=== PATIENT | male | born 1985 | race African-American/Black ===

== ENCOUNTER 2016-08-21 21:44 | Emergency (ER) | payer SELFPAY ==
[~2016-08-21] VITALS: Ht 172.7 cm; Wt 68.0 kg
[2016-08-21] MEDS ORDERED: MORPHINE SULFATE 4 MG/ML CPJ (NOT FOR IM USE) IV ONE (22:00)
[2016-08-21] MEDS ORDERED: TETANUS, DIPHTHERIA, PERTUSSIS VAC/PF 0.5ML (>7YR OLD) IM ONE (22:00)
[2016-08-21] MEDS ORDERED: CEFAZOLIN 1000MG PREMIX 50 ML IV ONE (22:00)
[2016-08-21 22:24] LABS: BASOPHILS % 0.7 % (0.0-2.0); EOSINOPHILS % 0.9 % (0.0-5.0); HEMATOCRIT. 44.9 % (42.0-52.0); LYMPHOCYTES % 33.9 % (20.0-50.0); MEAN CORPUSCULAR HEMOGLOBIN 31.7 pg (28.0-32.0); MEAN CORPUSCULAR HGB CONC 33.4 g/dL (31.0-37.0); MEAN CORPUSCULAR VOLUME 94.9 fL (80.0-94.0); MEAN PLATELET VOLUME 8.6 fl (7.4-10.4); MONOCYTES % 5.3 % (2.0-8.0); NEUTROPHILS % 59.2 % (40.0-76.0); PLATELET 246 x1000/uL (130-400); RED BLOOD CELL COUNT 4.73 mill/uL (4.7-6.1); RED CELL DISTRIBUTION WIDTH 13.8 % (11.6-14.6); WHITE BLOOD COUNT 9.3 x1000/uL (4.5-11.0)
[2016-08-21 22:30] LABS: ANION GAP 14; CALCIUM 8.8 mg/dL (8.5-10.1); CARBON DIOXIDE 25 mEq/L (21-32); CHLORIDE 111 mEq/L (98-107); INDEX HEMOLYSI 2 (1-3); INDEX ICTERIC 1 (1-4); INDEX LIPEMIC 1 (1-3); UREA NITROGEN BLOOD 10 mg/dL (7-21); eGFR > 60 mL/min (>60)
[2016-08-21] MEDS ORDERED: BACITRACIN ZINC OINT UDPKT TOP ONE (23:15)
[2016-08-21] MEDS ORDERED: FENTANYL CITRATE/PF 50MCG/ML 2ML VIAL IV ONE (23:30)
[2016-08-21] MEDS ORDERED: BACITRACIN ZINC 15GM TUBE TOP ONE (23:45)
[2016-08-22 00:05] VITALS: BP 176/94
== END 2016-08-22 00:49 | disposition short-term general hospital (02) ==
LOC: ER 21:44
DX: S52.91XA Unspecified fracture of right forearm, initial encounter for closed fracture (principal); W34.00XA Accidental discharge from unspecified firearms or gun, initial encounter; Y93.89 Activity, other specified; Y99.8 Other external cause status; Y92.89 Other specified places as the place of occurrence of the external cause; Z98.890 Other specified postprocedural states
CPT/HCPCS: 36415; 73060; 73090; 80048; 85025; 86850; 86900; 86901; 90471; 90715; 96365; 96375; 99291; J0690; J2270; J3010; Z7610; 99285

== ENCOUNTER 2018-11-01 13:53 | Emergency (ER) | payer MEDICAID ==
[~2018-11-01] VITALS: Ht 170.2 cm; Wt 68.0 kg
[2018-11-01 16:50] VITALS: BP 137/81
[2018-11-01 16:50] LABS: CHLORIDE 104 mEq/L (98-107)
[2018-11-01 16:51] LABS: INR 1.1; PROTHROMBIN TIME 11.1 sec (9.6-11.0)
[2018-11-01 16:58] LABS: BASOPHILS % 0.7 % (0.0-2.0); EOSINOPHILS % 0.3 % (0.0-5.0); HEMATOCRIT. 44.3 % (42.0-52.0); HEMOGLOBIN. 14.9 g/dL (14.0-18.0); LYMPHOCYTES % 16.2 % (20.0-50.0); MEAN CORPUSCULAR HEMOGLOBIN 31.9 pg (28.0-32.0); MEAN PLATELET VOLUME 8.5 fl (7.4-10.4); MONOCYTES % 5.9 % (2.0-8.0); NEUTROPHILS % 76.9 % (40.0-76.0); PLATELET 234 x1000/uL (130-400); RED BLOOD CELL COUNT 4.66 mill/uL (4.7-6.1); RED CELL DISTRIBUTION WIDTH 14.1 % (11.6-14.6)
== END 2018-11-01 19:59 | disposition short-term general hospital (02) ==
LOC: ER 14:16
DX: S02.82XA Fracture of other specified skull and facial bones, left side, initial encounter for closed fracture (principal); S02.2XXA Fracture of nasal bones, initial encounter for closed fracture; F12.10 Cannabis abuse, uncomplicated; X58.XXXA Exposure to other specified factors, initial encounter; Y93.89 Activity, other specified; Y92.89 Other specified places as the place of occurrence of the external cause; Y99.8 Other external cause status
CPT/HCPCS: 36415; 70486; 86850; 86900; 99285

== ENCOUNTER 2021-02-17 11:50 | Emergency (ER) | payer MEDICAID ==
[~2021-02-17] VITALS: Ht 170.2 cm; Wt 73.0 kg
[2021-02-17] MEDS ORDERED: IBUPROFEN 400MG TABLET PO ONE (13:15)
[2021-02-17] MEDS ORDERED: ACETAMINOPHEN 325MG TABLET PO ONE (13:15)
[2021-02-17 13:25] VITALS: BP 132/86
== END 2021-02-17 16:59 | disposition home or self-care (01) ==
LOC: ER 11:50
DX: L63.9 Alopecia areata, unspecified (principal); F17.290 Nicotine dependence, other tobacco product, uncomplicated; F12.10 Cannabis abuse, uncomplicated
CPT/HCPCS: 99283

== ENCOUNTER 2021-04-12 09:26 | Inpatient (IN) | payer MEDICAID ==
[~2021-04-12] VITALS: Ht 170.2 cm; Wt 64.4 kg
[2021-04-12 10:29] LABS: BASOPHILS % 0.6 % (0.0-2.0); EOSINOPHILS % 1.1 % (0.0-5.0); HEMATOCRIT. 43.6 % (42.0-52.0); HEMOGLOBIN. 14.6 g/dL (14.0-18.0); LYMPHOCYTES % 16.4 % (20.0-50.0); MEAN CORPUSCULAR VOLUME 92.9 fL (80.0-94.0); MEAN PLATELET VOLUME 8.6 fl (7.4-10.4); MONOCYTES % 4.6 % (2.0-8.0); NEUTROPHILS % 77.3 % (40.0-76.0); PLATELET 248 x1000/uL (130-400); RED CELL DISTRIBUTION WIDTH 13.7 % (11.6-14.6)
[2021-04-12 10:36] LABS: CHLORIDE 108 mEq/L (98-107)
[2021-04-12 10:40] LABS: ETHANOL BLOOD < 10 mg/dL
[2021-04-12 12:08] LABS: *BARBITURATES SCREEN URINE NEGATIVE (NEGATIVE); *BENZODIAZEPINES SCREEN URINE NEGATIVE (NEGATIVE); *COCAINE SCREEN URINE NEGATIVE (NEGATIVE); CANNABINOID URINE SCREEN PRESUMTIVE POSITIVE (NEGATIVE); METHADONE URINE SCREEN NEGATIVE (NEGATIVE); OPIATES URINE SCREEN NEGATIVE (NEGATIVE); PHENCYCLIDINE URINE SCREEN NEGATIVE (NEGATIVE)
[2021-04-12 12:10] LABS: *AMPHETAMINES SCREEN URINE NEGATIVE (NEGATIVE)
[2021-04-12] MEDS ORDERED: ASPIRIN 325MG EC TABLET PO ONE (13:45)
[2021-04-12] MEDS ORDERED: IOHEXOL-350 100 ML BOTTLE ONE (14:15)
[2021-04-12] MEDS ORDERED: MORPHINE SULFATE 2 MG/ML CPJ (NOT FOR IM USE) IV PRN (20:45)
[2021-04-12] MEDS ORDERED: ACETAMINOPHEN 325MG TABLET PO PRN (20:45)
[2021-04-12] MEDS ORDERED: HYDRALAZINE 20MG/ML VIAL IV PRN (20:45)
[2021-04-12] MEDS ORDERED: MAGNESIUM/ALUMINUM HYDROXIDE/SIMETHICONE 30ML UDC PO PRN (20:45)
[2021-04-12] MEDS ORDERED: DIPHENHYDRAMINE 50MG/ML VIAL IV PRN (20:45)
[2021-04-12] MEDS ORDERED: LORAZEPAM 2MG/ML CPJ IV PRN (20:45)
[2021-04-12] MEDS ORDERED: IPRATROPIUM/ALBUTEROL 0.5-3(2.5)MG/3ML NEB HHN PRN (20:45)
[2021-04-12] MEDS ORDERED: ONDANSETRON HCL 4MG/2ML INJ IV PRN (20:45)
[2021-04-12] MEDS ORDERED: CLONIDINE 0.1MG TABLET PO PRN (20:45)
[2021-04-12] MEDS ORDERED: HYDROCODONE/ACETAMINOPHEN 5/325MG TABLET PO PRN (20:45)
[2021-04-12] MEDS ORDERED: GUAIFENESIN 200MG/10ML SUGAR FREE UDC PO PRN (20:45)
[2021-04-12] MEDS ORDERED: DOCUSATE SODIUM 100MG CAPSULE PO PRN (20:45)
[2021-04-12] MEDS ORDERED: NALOXONE HCL 0.4MG/ML VIAL IV PRN (21:00)
[2021-04-12 21:30] VITALS: BP 127/81
[2021-04-12 22:00] VITALS: BP 156/71
[2021-04-12] MEDS: ENOXAPARIN 40MG/0.4ML SYR SUBCUT SCH (22:27)
[2021-04-12] MEDS: SODIUM CHLORIDE 0.9% INJ 3ML FLUSH IVF SCH (22:27)
[2021-04-13] VITALS: BP 123/49
[2021-04-13 01:19] LABS: CREATINE KINASE 87 IU/L (39-308)
[2021-04-13 01:20] LABS: CREATINE KINASE MB FRACTION < 1.0 ng/mL (0.5-3.6)
[2021-04-13 04:00] VITALS: BP 105/80
[2021-04-13] MEDS: SODIUM CHLORIDE 0.9% INJ 3ML FLUSH IVF SCH ×3 (05:46→21:22)
[2021-04-13 06:33] LABS: BASOPHILS % 0.6 % (0.0-2.0); EOSINOPHILS % 1.8 % (0.0-5.0); HEMATOCRIT. 41.5 % (42.0-52.0); HEMOGLOBIN. 14.1 g/dL (14.0-18.0); MEAN CORPUSCULAR HEMOGLOBIN 31.4 pg (28.0-32.0); MEAN CORPUSCULAR VOLUME 92.4 fL (80.0-94.0); MEAN PLATELET VOLUME 8.8 fl (7.4-10.4); MONOCYTES % 6.9 % (2.0-8.0); NEUTROPHILS % 69.7 % (40.0-76.0); PLATELET 239 x1000/uL (130-400); RED BLOOD CELL COUNT 4.49 mill/uL (4.7-6.1); RED CELL DISTRIBUTION WIDTH 13.5 % (11.6-14.6)
[2021-04-13 06:41] LABS: CHLORIDE 107 mEq/L (98-107)
[2021-04-13 06:50] LABS: CREATINE KINASE 76 IU/L (39-308)
[2021-04-13 06:53] LABS: CREATINE KINASE MB FRACTION < 1.0 ng/mL (0.5-3.6)
[2021-04-13 08:00] VITALS: BP 103/54
[2021-04-13] MEDS: ASPIRIN 81MG EC TABLET PO SCH (11:40)
[2021-04-13 12:00] VITALS: BP 117/75
[2021-04-13 16:00] VITALS: BP 116/80
[2021-04-13 20:00] VITALS: BP 120/78
[2021-04-13] MEDS: ATORVASTATIN CALCIUM 40MG TABLET PO SCH (21:21)
[2021-04-13] MEDS: ENOXAPARIN 40MG/0.4ML SYR SUBCUT SCH (21:22)
[2021-04-14] VITALS: BP 115/69
[2021-04-14 04:00] VITALS: BP 121/70
[2021-04-14] MEDS: SODIUM CHLORIDE 0.9% INJ 3ML FLUSH IVF SCH ×3 (04:41→21:10)
[2021-04-14 08:00] VITALS: BP 109/68
[2021-04-14] MEDS: ASPIRIN 81MG EC TABLET PO SCH (09:45)
[2021-04-14 12:00] VITALS: BP 112/69
[2021-04-14 16:00] VITALS: BP 115/74
[2021-04-14 20:00] VITALS: BP 123/77
[2021-04-14] MEDS: ENOXAPARIN 40MG/0.4ML SYR SUBCUT SCH (21:10)
[2021-04-14] MEDS: ATORVASTATIN CALCIUM 40MG TABLET PO SCH (21:10)
[2021-04-15] VITALS: BP 107/65
[2021-04-15 04:00] VITALS: BP 126/74
[2021-04-15] MEDS: SODIUM CHLORIDE 0.9% INJ 3ML FLUSH IVF SCH ×2 (05:45→14:00)
[2021-04-15 08:00] VITALS: BP 111/63
[2021-04-15] MEDS: ASPIRIN 81MG EC TABLET PO SCH (08:34)
[2021-04-15] MEDS ORDERED: LIDOCAINE HCL 2% JELLY 5ML ONE (09:02)
[2021-04-15] MEDS ORDERED: TETRACAINE/BENZOCAINE/BUTAMBEN 20 GM SPRAY MM ONE (09:03)
[2021-04-15] MEDS ORDERED: MIDAZOLAM HCL 2 MG/2 ML VIAL ONE ×2 (09:04→09:31)
[2021-04-15] MEDS ORDERED: FENTANYL CITRATE/PF 50MCG/ML 2ML VIAL ONE (09:04)
[2021-04-15] MEDS ORDERED: FENTANYL CITRATE/PF 50MCG/ML 5ML VIAL ONE (10:59)
[2021-04-15] MEDS ORDERED: MIDAZOLAM HCL 5 MG/5 ML VIAL ONE (10:59)
[2021-04-15 12:00] VITALS: BP 119/67
[2021-04-15 13:35] VITALS: BP 119/68
[2021-04-15 16:00] VITALS: BP 121/65
[2021-04-18 13:11] LABS: ANTI-NUCLEAR ANTIBODIES DIRECT Negative (Negative)
[2021-04-19 13:11] LABS: ANTI-CARDIOLIPIN AB IGA < 9 APL U/mL (0-11)
== END 2021-04-15 17:14 | disposition home or self-care (01) | DRG 58 ==
LOC: ER 09:37 → 7EST 15:34 → EDBEDREQ 16:02 → ENRESERV 19:20 → SUPCPDRO 20:44
PROVIDERS: ADMIT Internal Medicine; ATTEND Internal Medicine
DX: R47.81 Slurred speech (principal); E78.5 Hyperlipidemia, unspecified; F12.90 Cannabis use, unspecified, uncomplicated; L98.9 Disorder of the skin and subcutaneous tissue, unspecified; Z20.822 Contact with and (suspected) exposure to COVID-19; L98.8 Other specified disorders of the skin and subcutaneous tissue; Z82.3 Family history of stroke; Z86.73 Personal history of transient ischemic attack (TIA), and cerebral infarction without residual deficits; Z79.899 Other long term (current) drug therapy
CPT/HCPCS: 36415; 70496; 70498; 70551; 71045; 80053; 80061; 80305; 80320; 82550; 82553; 82962; 83880; 84443; 84484; 85025; 85303; 86038; 86147; 87426; 92610; 93005; 93306; 93312; 93970; 97162; 97166; 99285; J1650; J2250; J3010; Q9967; G0480

== ENCOUNTER 2021-10-05 08:55 | Emergency (ER) | payer MEDICAID ==
[~2021-10-05] VITALS: Ht 165.1 cm; Wt 70.0 kg
[2021-10-05 09:15] VITALS: BP 102/72
== END 2021-10-05 10:18 | disposition home or self-care (01) ==
LOC: ER 08:55
DX: R51.9 Headache, unspecified (principal); I69.354 Hemiplegia and hemiparesis following cerebral infarction affecting left non-dominant side; F12.90 Cannabis use, unspecified, uncomplicated
CPT/HCPCS: 99281

== ENCOUNTER 2021-11-05 08:32 | Emergency (ER) | payer MEDICAID ==
[~2021-11-05] VITALS: Ht 170.2 cm; Wt 62.0 kg
[2021-11-05 08:34] VITALS: BP 149/86
[2021-11-05] MEDS ORDERED: ACETAMINOPHEN 325MG TABLET PO STA (10:17)
[2021-11-05 11:47] LABS: BASOPHILS % 0.4 % (0.0-2.0); EOSINOPHILS % 1.2 % (0.0-5.0); HEMATOCRIT. 44.1 % (42.0-52.0); HEMOGLOBIN. 14.8 g/dL (14.0-18.0); LYMPHOCYTES % 15.4 % (20.0-50.0); MEAN CORPUSCULAR HEMOGLOBIN 30.2 pg (28.0-32.0); MEAN CORPUSCULAR VOLUME 89.9 fL (80.0-94.0); MEAN PLATELET VOLUME 8.4 fl (7.4-10.4); MONOCYTES % 4.4 % (2.0-8.0); NEUTROPHILS % 78.6 % (40.0-76.0); PLATELET 266 x1000/uL (130-400); RED CELL DISTRIBUTION WIDTH 14.6 % (11.6-14.6)
[2021-11-05 11:50] LABS: CHLORIDE 109 mEq/L (98-107)
== END 2021-11-05 12:48 | disposition home or self-care (01) ==
LOC: ER 08:41
DX: R51.9 Headache, unspecified (principal); R42 Dizziness and giddiness; I69.351 Hemiplegia and hemiparesis following cerebral infarction affecting right dominant side; I69.921 Dysphasia following unspecified cerebrovascular disease
CPT/HCPCS: 36415; 80053; 84484; 85025; 93005; 99285

== ENCOUNTER 2021-11-23 08:53 | Inpatient (IN) | payer MEDICAID ==
[~2021-11-23] VITALS: Ht 170.2 cm; Wt 64.4 kg
[2021-11-23 09:41] LABS: BASOPHILS % 0.8 % (0.0-2.0); EOSINOPHILS % 4.2 % (0.0-5.0); HEMATOCRIT. 47.7 % (42.0-52.0); HEMOGLOBIN. 16.1 g/dL (14.0-18.0); LYMPHOCYTES % 27.4 % (20.0-50.0); MEAN CORPUSCULAR HEMOGLOBIN 31.1 pg (28.0-32.0); MEAN PLATELET VOLUME 8.6 fl (7.4-10.4); NEUTROPHILS % 61.6 % (40.0-76.0); PLATELET 263 x1000/uL (130-400); RED BLOOD CELL COUNT 5.18 mill/uL (4.7-6.1); RED CELL DISTRIBUTION WIDTH 14.1 % (11.6-14.6)
[2021-11-23 09:49] LABS: CHLORIDE 106 mEq/L (98-107)
[2021-11-23] MEDS ORDERED: ASPIRIN 325MG EC TABLET PO ONE (10:30)
[2021-11-23] MEDS ORDERED: MORPHINE SULFATE 2 MG/ML CPJ (NOT FOR IM USE) IV PRN (13:45)
[2021-11-23] MEDS ORDERED: NALOXONE HCL 0.4MG/ML VIAL IV PRN (13:45)
[2021-11-23] MEDS ORDERED: MAGNESIUM/ALUMINUM HYDROXIDE/SIMETHICONE 30ML UDC PO PRN (13:45)
[2021-11-23] MEDS ORDERED: ACETAMINOPHEN 325MG TABLET PO PRN (13:45)
[2021-11-23] MEDS ORDERED: HYDROCODONE/ACETAMINOPHEN 5/325MG TABLET PO PRN (13:45)
[2021-11-23] MEDS ORDERED: ONDANSETRON HCL 4MG/2ML INJ IV PRN (13:45)
[2021-11-23] MEDS ORDERED: DOCUSATE SODIUM 100MG CAPSULE PO PRN (13:45)
[2021-11-23] MEDS ORDERED: NA PHOS,M-B/NA PHOS,DI-BA ENEMA 118ML PR PRN (13:45)
[2021-11-23] MEDS ORDERED: CLONIDINE 0.1MG TABLET PO PRN (13:45)
[2021-11-23] MEDS ORDERED: DIPHENHYDRAMINE 50MG/ML VIAL IV PRN (13:45)
[2021-11-23] MEDS ORDERED: IPRATROPIUM/ALBUTEROL 0.5-3(2.5)MG/3ML NEB NEB PRN (13:45)
[2021-11-23] MEDS ORDERED: GUAIFENESIN 200MG/10ML SUGAR FREE UDC PO PRN (13:45)
[2021-11-23] MEDS: ENOXAPARIN 40MG/0.4ML SYR SUBCUT SCH (15:13)
[2021-11-23] MEDS: SODIUM CHLORIDE 0.45% 1,000 ML IV SCH (15:16)
[2021-11-23 17:52] VITALS: BP 114/68
[2021-11-23] MEDS ORDERED: ATOR40TA70 PO (19:53)
[2021-11-23] MEDS ORDERED: ASPI-1406 PO (19:53)
[2021-11-23 20:00] VITALS: BP 108/54
[2021-11-23] MEDS ORDERED: PNEUMOCOCCAL 23-VAL P-SAC VAC 0.5 ML IM ONE (20:00)
[2021-11-24] VITALS: BP 110/60
[2021-11-24 04:00] VITALS: BP_SYST 136; BP_SYST 98; BP_DIAS 54; BP_DIAS 58
[2021-11-24 07:28] LABS: BASOPHILS % 0.7 % (0.0-2.0); EOSINOPHILS % 3.7 % (0.0-5.0); HEMATOCRIT. 43.1 % (42.0-52.0); HEMOGLOBIN. 14.5 g/dL (14.0-18.0); LYMPHOCYTES % 29.4 % (20.0-50.0); MEAN CORPUSCULAR HEMOGLOBIN 30.8 pg (28.0-32.0); MONOCYTES % 8.1 % (2.0-8.0); NEUTROPHILS % 58.1 % (40.0-76.0); PLATELET 230 x1000/uL (130-400); RED BLOOD CELL COUNT 4.69 mill/uL (4.7-6.1); RED CELL DISTRIBUTION WIDTH 14.2 % (11.6-14.6)
[2021-11-24 07:37] LABS: CHLORIDE 105 mEq/L (98-107)
[2021-11-24 08:00] VITALS: BP 119/68
[2021-11-24] MEDS: ASPIRIN 81MG EC TABLET PO SCH (08:46)
[2021-11-24 12:00] VITALS: BP 115/64
[2021-11-24 12:16] LABS: T4 FREE 1.14 ng/dL (0.76-1.46)
[2021-11-24] MEDS: SODIUM CHLORIDE 0.45% 1,000 ML IV SCH (13:48)
[2021-11-24] MEDS: ENOXAPARIN 40MG/0.4ML SYR SUBCUT SCH (15:36)
[2021-11-24 16:00] VITALS: BP 121/69
[2021-11-24 16:30] LABS: CREATINE KINASE 99 IU/L (39-308); CREATINE KINASE MB FRACTION < 1.0 ng/mL (0.5-3.6)
[2021-11-24 20:00] VITALS: BP 126/76
[2021-11-25] VITALS (7 sets, daily range): BP systolic 104–121; BP diastolic 56–71
[2021-11-25 03:52] LABS: CREATINE KINASE 93 IU/L (39-308); CREATINE KINASE MB FRACTION < 1.0 ng/mL (0.5-3.6)
[2021-11-25 04:08] LABS: HIV SCREEN 4G Non Reactive (Non Reactive)
[2021-11-25] MEDS: SODIUM CHLORIDE 0.45% 1,000 ML IV SCH (04:41)
[2021-11-25] MEDS: ASPIRIN 81MG EC TABLET PO SCH (08:06)
[2021-11-25] MEDS: CLOPIDOGREL 75MG TABLET PO SCH (08:06)
[2021-11-25 09:10] LABS: ANTI-DNA DOUBLE STRANDED QUANT 1 IU/mL (0-9); ANTI-JO 1 ABS <0.2 AI (0.0-0.9); ANTI-NUCLEAR ANTIBODIES DIRECT Negative (Negative)
[2021-11-25 10:08] LABS: CREATINE KINASE 99 IU/L (39-308); CREATINE KINASE MB FRACTION < 1.0 ng/mL (0.5-3.6)
[2021-11-25] MEDS: ENOXAPARIN 40MG/0.4ML SYR SUBCUT SCH (15:45)
[2021-11-25] MEDS: ATORVASTATIN CALCIUM 40MG TABLET PO SCH (21:01)
[2021-11-26] VITALS: BP 111/70
[2021-11-26 04:00] VITALS: BP 113/68
[2021-11-26 04:12] LABS: ANTI-THROMBIN ACTIVITY 83 % (75-135); PROTEIN C FUNCTIONAL 75 % (73-180)
[2021-11-26 08:00] VITALS: BP 115/67
[2021-11-26] MEDS: ASPIRIN 81MG EC TABLET PO SCH (08:46)
[2021-11-26] MEDS: CLOPIDOGREL 75MG TABLET PO SCH (08:46)
[2021-11-26 12:13] VITALS: BP 116/64
[2021-11-26 13:12] LABS: ANTI-CARDIOLIPIN AB IGA < 9 APL U/mL (0-11); ANTI-CARDIOLIPIN AB IGG < 9 GPL U/mL (0-14); ANTI-CARDIOLIPIN AB IGM < 9 MPL U/mL (0-12)
[2021-11-26] MEDS: ENOXAPARIN 40MG/0.4ML SYR SUBCUT SCH (14:45)
[2021-11-26 16:00] VITALS: BP 121/64
[2021-11-26 20:56] VITALS: BP 118/74
[2021-11-26] MEDS: ATORVASTATIN CALCIUM 40MG TABLET PO SCH (21:03)
[2021-11-27 00:35] VITALS: BP 135/77
[2021-11-27 04:00] VITALS: BP 134/78
[2021-11-27 08:00] VITALS: BP 122/64
[2021-11-27] MEDS: CLOPIDOGREL 75MG TABLET PO SCH (08:38)
[2021-11-27] MEDS: ASPIRIN 81MG EC TABLET PO SCH (08:38)
[2021-11-27 12:09] VITALS: BP 142/94
[2021-11-27] MEDS: ENOXAPARIN 40MG/0.4ML SYR SUBCUT SCH (15:22)
[2021-11-27 16:00] VITALS: BP 99/53
[2021-11-27] MEDS: ATORVASTATIN CALCIUM 40MG TABLET PO SCH (20:04)
[2021-11-27 21:02] VITALS: BP 107/63
[2021-11-28] VITALS: BP 110/59
[2021-11-28 04:00] VITALS: BP 130/73
[2021-11-28 08:00] VITALS: BP 99/54
[2021-11-28] MEDS: ASPIRIN 81MG EC TABLET PO SCH (09:08)
[2021-11-28] MEDS: CLOPIDOGREL 75MG TABLET PO SCH (09:08)
[2021-11-28 12:00] VITALS: BP 118/64
[2021-11-28] MEDS: ENOXAPARIN 40MG/0.4ML SYR SUBCUT SCH (13:15)
[2021-11-28 16:00] VITALS: BP 134/53
[2021-11-28 20:00] VITALS: BP 115/70
[2021-11-28] MEDS: ATORVASTATIN CALCIUM 40MG TABLET PO SCH (22:49)
[2021-11-29] VITALS: BP 128/48
[2021-11-29 04:00] VITALS: BP 132/57
[2021-11-29 08:00] VITALS: BP 118/68
[2021-11-29] MEDS: ASPIRIN 81MG EC TABLET PO SCH (08:43)
[2021-11-29] MEDS: CLOPIDOGREL 75MG TABLET PO SCH (08:43)
[2021-11-29 12:00] VITALS: BP 127/76
[2021-11-29] MEDS: ENOXAPARIN 40MG/0.4ML SYR SUBCUT SCH (14:06)
[2021-11-29 15:09] LABS: ANTI-MYELOPEROXIDASE AB < 0.2 units (0.0-0.9); ANTI-PROTEINASE 3 ABS < 0.2 units (0.0-0.9)
[2021-11-29 16:00] VITALS: BP 130/62
[2021-11-29 20:00] VITALS: BP 130/80
[2021-11-29] MEDS: ATORVASTATIN CALCIUM 40MG TABLET PO SCH (21:09)
[2021-11-30] VITALS (7 sets, daily range): BP systolic 109–124; BP diastolic 61–77
[2021-11-30] MEDS: ASPIRIN 81MG EC TABLET PO SCH (09:19)
[2021-11-30] MEDS: CLOPIDOGREL 75MG TABLET PO SCH (09:19)
[2021-11-30 13:07] LABS: ATYPICAL P-ANCA <1:20 titer (Neg:<1:20); CYTOPLASMIC C-ANCA <1:20 titer (Neg:<1:20); PERINUCLEAR P-ANCA <1:20 titer (Neg:<1:20)
[2021-11-30] MEDS: ENOXAPARIN 40MG/0.4ML SYR SUBCUT SCH (13:34)
[2021-11-30 16:51] LABS: BASOPHILS % 0.8 % (0.0-2.0); EOSINOPHILS % 2.2 % (0.0-5.0); HEMATOCRIT. 42.7 % (42.0-52.0); HEMOGLOBIN. 14.3 g/dL (14.0-18.0); LYMPHOCYTES % 20.7 % (20.0-50.0); MEAN CORPUSCULAR HEMOGLOBIN 30.7 pg (28.0-32.0); MEAN CORPUSCULAR VOLUME 91.6 fL (80.0-94.0); MEAN PLATELET VOLUME 8.8 fl (7.4-10.4); MONOCYTES % 7.4 % (2.0-8.0); NEUTROPHILS % 68.9 % (40.0-76.0); PLATELET 249 x1000/uL (130-400); RED BLOOD CELL COUNT 4.66 mill/uL (4.7-6.1); RED CELL DISTRIBUTION WIDTH 13.8 % (11.6-14.6)
[2021-11-30 17:24] LABS: CHLORIDE 105 mEq/L (98-107)
[2021-11-30] MEDS: ATORVASTATIN CALCIUM 40MG TABLET PO SCH (20:51)
[2021-12-01] VITALS: BP 104/69
[2021-12-01 04:00] VITALS: BP 106/68
[2021-12-01 08:00] VITALS: BP 127/75
[2021-12-01] MEDS: CLOPIDOGREL 75MG TABLET PO SCH (09:05)
[2021-12-01] MEDS: ASPIRIN 81MG EC TABLET PO SCH (09:06)
[2021-12-01 12:08] VITALS: BP 118/71
[2021-12-01] MEDS: ENOXAPARIN 40MG/0.4ML SYR SUBCUT SCH (13:05)
[2021-12-01 16:00] VITALS: BP 118/74
[2021-12-01 20:00] VITALS: BP 117/76
[2021-12-01] MEDS: ATORVASTATIN CALCIUM 40MG TABLET PO SCH (22:06)
[2021-12-02] VITALS: BP 110/61
[2021-12-02 04:00] VITALS: BP 102/52
[2021-12-02 08:00] VITALS: BP 113/79
[2021-12-02] MEDS: CLOPIDOGREL 75MG TABLET PO SCH (08:27)
[2021-12-02] MEDS: ASPIRIN 81MG EC TABLET PO SCH (08:27)
[2021-12-02 12:00] VITALS: BP 123/68
[2021-12-02] MEDS: ENOXAPARIN 40MG/0.4ML SYR SUBCUT SCH (13:42)
[2021-12-02 16:00] VITALS: BP 117/77
[2021-12-02 20:00] VITALS: BP 120/68
[2021-12-02] MEDS: ATORVASTATIN CALCIUM 40MG TABLET PO SCH (20:47)
[2021-12-03] VITALS: BP 116/60
[2021-12-03 04:00] VITALS: BP 125/72
[2021-12-03 08:00] VITALS: BP 119/66
[2021-12-03] MEDS: CLOPIDOGREL 75MG TABLET PO SCH (08:52)
[2021-12-03] MEDS: ASPIRIN 81MG EC TABLET PO SCH (08:52)
[2021-12-03 11:40] VITALS: BP 114/62
[2021-12-03] MEDS: ENOXAPARIN 40MG/0.4ML SYR SUBCUT SCH (13:02)
[2021-12-03 16:00] VITALS: BP 127/67
[2021-12-03 20:00] VITALS: BP 122/69
[2021-12-03] MEDS: ATORVASTATIN CALCIUM 40MG TABLET PO SCH (20:19)
[2021-12-04] VITALS: BP 124/63
[2021-12-04 04:00] VITALS: BP 130/62
[2021-12-04 08:00] VITALS: BP 138/74
[2021-12-04] MEDS: CLOPIDOGREL 75MG TABLET PO SCH (09:18)
[2021-12-04] MEDS: ASPIRIN 81MG EC TABLET PO SCH (09:18)
[2021-12-04 12:00] VITALS: BP 110/77
[2021-12-04] MEDS: ENOXAPARIN 40MG/0.4ML SYR SUBCUT SCH (13:48)
[2021-12-04 16:00] VITALS: BP 112/74
[2021-12-04] MEDS: ATORVASTATIN CALCIUM 40MG TABLET PO SCH (20:08)
[2021-12-05 08:00] VITALS: BP 133/65
[2021-12-05] MEDS: CLOPIDOGREL 75MG TABLET PO SCH (09:08)
[2021-12-05] MEDS: ASPIRIN 81MG EC TABLET PO SCH (09:08)
[2021-12-05 12:00] VITALS: BP_SYST 119; BP_SYST 123; BP_DIAS 57; BP_DIAS 78
[2021-12-05 14:31] LABS: ANTI-HU ANTIBODIES NEGATIVE
[2021-12-05] MEDS: ENOXAPARIN 40MG/0.4ML SYR SUBCUT SCH (15:24)
[2021-12-05 16:25] VITALS: BP 123/78
[2021-12-05 20:00] VITALS: BP 135/81
[2021-12-05] MEDS: ATORVASTATIN CALCIUM 40MG TABLET PO SCH (20:50)
[2021-12-06] VITALS: BP 102/49
[2021-12-06 04:00] VITALS: BP 119/67
[2021-12-06 05:05] VITALS: BP 110/67
== END 2021-12-06 07:35 | disposition home or self-care (01) | DRG 45 ==
LOC: ER 08:53 → 7WST 11:21 → ENRESERV 14:04 → 6EST 12-02 14:11
PROVIDERS: ADMIT Internal Medicine; ATTEND Internal Medicine
DX: I63.9 Cerebral infarction, unspecified (principal); G93.41 Metabolic encephalopathy; E86.0 Dehydration; R47.1 Dysarthria and anarthria; I08.3 Combined rheumatic disorders of mitral, aortic and tricuspid valves; M48.02 Spinal stenosis, cervical region; E78.5 Hyperlipidemia, unspecified; I10 Essential (primary) hypertension; I69.393 Ataxia following cerebral infarction; Z82.3 Family history of stroke; Z82.49 Family history of ischemic heart disease and other diseases of the circulatory system; Z81.3 Family history of other psychoactive substance abuse and dependence
CPT/HCPCS: 36415; 70544; 70547; 70551; 71045; 72141; 80048; 80053; 80061; 81403; 81407; 81479; 82550; 82553; 82962; 83036; 83520; 83880; 84439; 84443; 84484; 85025; 85300; 85303; 85306; 85307; 85379; 86038; 86147; 86225; 86235; 86256; 87389; 90732; 92523; 93005; 93306; 93880; 97162; 97166; 99285; J1650

== ENCOUNTER 2022-03-06 10:33 | Inpatient (IN) | payer MEDICAID ==
[~2022-03-06] VITALS: Ht 172.7 cm; Wt 66.7 kg
[~2022-03-06 10:33] MED LIST: ASPI-1406 PO; ATOR40TA70 PO
[2022-03-06 11:50] LABS: BASOPHILS % 0.5 % (0.0-2.0); EOSINOPHILS % 2.9 % (0.0-5.0); HEMATOCRIT. 40.1 % (42.0-52.0); HEMOGLOBIN. 13.8 g/dL (14.0-18.0); LYMPHOCYTES % 20.7 % (20.0-50.0); MEAN CORPUSCULAR HEMOGLOBIN 30.8 pg (28.0-32.0); MEAN CORPUSCULAR VOLUME 89.6 fL (80.0-94.0); MEAN PLATELET VOLUME 8.6 fl (7.4-10.4); MONOCYTES % 6.3 % (2.0-8.0); NEUTROPHILS % 69.6 % (40.0-76.0); PLATELET 240 x1000/uL (130-400); RED BLOOD CELL COUNT 4.48 mill/uL (4.7-6.1); RED CELL DISTRIBUTION WIDTH 13.9 % (11.6-14.6)
[2022-03-06 11:55] LABS: CHLORIDE 108 mEq/L (98-107)
[2022-03-06 12:40] LABS: CLARITY URINE CLEAR (CLEAR); COLOR URINE YELLOW (YELLOW); KETONES URINE TRACE (NEGATIVE); LEUKOCYTE ESTERASE URINE NEGATIVE (NEGATIVE); NITRITE URINE NEGATIVE (NEGATIVE); OCCULT BLOOD URINE NEGATIVE (NEGATIVE); PH URINE 6.5 (4.5-8.0); PROTEIN URINE NEGATIVE (NEGATIVE); SPECIFIC GRAVITY URINE 1.027 (1.005-1.030)
[2022-03-06 13:08] LABS: *AMPHETAMINES SCREEN URINE NEGATIVE (NEGATIVE); *BARBITURATES SCREEN URINE NEGATIVE (NEGATIVE); *BENZODIAZEPINES SCREEN URINE NEGATIVE (NEGATIVE); *COCAINE SCREEN URINE NEGATIVE (NEGATIVE); CANNABINOID URINE SCREEN PRESUMTIVE POSITIVE (NEGATIVE); METHADONE URINE SCREEN NEGATIVE (NEGATIVE); OPIATES URINE SCREEN NEGATIVE (NEGATIVE); PHENCYCLIDINE URINE SCREEN NEGATIVE (NEGATIVE)
[2022-03-06 20:00] VITALS: BP 116/62
[2022-03-06 20:13] VITALS: BP 116/62
[2022-03-06] MEDS ORDERED: CLOP75TA33 PO (20:25)
[2022-03-06] MEDS ORDERED: GUAIFENESIN 200MG/10ML SUGAR FREE UDC PO PRN (22:30)
[2022-03-06] MEDS ORDERED: MAGNESIUM/ALUMINUM HYDROXIDE/SIMETHICONE 30ML UDC PO PRN (22:30)
[2022-03-06] MEDS ORDERED: MORPHINE SULFATE 2 MG/ML CPJ (NOT FOR IM USE) IV PRN (22:30)
[2022-03-06] MEDS ORDERED: DOCUSATE SODIUM 100MG CAPSULE PO PRN (22:30)
[2022-03-06] MEDS ORDERED: HYDROCODONE/ACETAMINOPHEN 5/325MG TABLET PO PRN (22:30)
[2022-03-06] MEDS ORDERED: CLONIDINE 0.1MG TABLET PO PRN (22:30)
[2022-03-06] MEDS ORDERED: ACETAMINOPHEN 325MG TABLET PO PRN ×2 (22:30)
[2022-03-06] MEDS ORDERED: ACETAMINOPHEN 650MG SUPP PR PRN ×2 (22:30)
[2022-03-06] MEDS ORDERED: IPRATROPIUM/ALBUTEROL 0.5-3(2.5)MG/3ML NEB HHN PRN (22:30)
[2022-03-06] MEDS ORDERED: ONDANSETRON HCL 4MG/2ML INJ IV PRN (22:30)
[2022-03-07] VITALS (8 sets, daily range): BP systolic 101–127; BP diastolic 59–72
[2022-03-07 06:33] LABS: BASOPHILS % 0.6 % (0.0-2.0); HEMATOCRIT. 41.8 % (42.0-52.0); LYMPHOCYTES % 22.3 % (20.0-50.0); MEAN CORPUSCULAR HEMOGLOBIN 30.2 pg (28.0-32.0); MEAN CORPUSCULAR VOLUME 90.1 fL (80.0-94.0); MEAN PLATELET VOLUME 9.1 fl (7.4-10.4); MONOCYTES % 8.4 % (2.0-8.0); NEUTROPHILS % 65.7 % (40.0-76.0); PLATELET 244 x1000/uL (130-400); RED BLOOD CELL COUNT 4.64 mill/uL (4.7-6.1)
[2022-03-07 07:01] LABS: CHLORIDE 104 mEq/L (98-107)
[2022-03-07 07:19] LABS: CREATINE KINASE 109 IU/L (39-308); HDL CHOLESTEROL 73 mg/dL (40-59); LDL CHOLESTEROL 120 mg/dL (5-100)
[2022-03-07] MEDS: ASPIRIN 81MG EC TABLET PO SCH (10:16)
[2022-03-07] MEDS: ENOXAPARIN 40MG/0.4ML SYR SUBCUT SCH (10:26)
[2022-03-07] MEDS ORDERED: LIP40 PO (18:20)
[2022-03-07] MEDS ORDERED: NALOXONE HCL 0.4MG/ML VIAL IV PRN (18:45)
[2022-03-07] MEDS ORDERED: ATORVASTATIN CALCIUM 40MG TABLET PO SCH (21:00)
[2022-03-08] VITALS: BP 117/62
[2022-03-08 04:00] VITALS: BP 129/68
[2022-03-08 08:00] VITALS: BP 106/64
[2022-03-08] MEDS: ASPIRIN 81MG EC TABLET PO SCH (10:34)
[2022-03-08] MEDS: ENOXAPARIN 40MG/0.4ML SYR SUBCUT SCH (10:35)
[2022-03-08 11:54] VITALS: BP 106/64
[2022-03-08 12:00] VITALS: BP 115/68
== END 2022-03-08 14:35 | disposition home or self-care (01) | DRG 425 ==
LOC: ER 10:33 → 7WST 14:52 → EDBEDREQ 15:09 → EDBEDREQTM 15:09 → ENRESERV 15:59
PROVIDERS: ADMIT Family Medicine Adult Medicine; ATTEND Family Medicine Adult Medicine
PROC: 4A00X4Z Measurement of Central Nervous Electrical Activity, External Approach (ICD-10-PCS; principal; 2022-03-08)
DX: E87.6 Hypokalemia (principal); G45.9 Transient cerebral ischemic attack, unspecified; E78.5 Hyperlipidemia, unspecified; R26.9 Unspecified abnormalities of gait and mobility; F12.90 Cannabis use, unspecified, uncomplicated; I69.393 Ataxia following cerebral infarction; I49.9 Cardiac arrhythmia, unspecified
CPT/HCPCS: 36415; 70551; 71045; 80053; 80061; 80305; 81003; 82550; 84443; 84484; 85025; 93005; 93306; 95816; 97162; 97166; 97535; 99291; J1650

== ENCOUNTER 2022-05-13 10:08 | Emergency (ER) | payer MEDICAID ==
[~2022-05-13] VITALS: Ht 170.2 cm; Wt 65.0 kg
[~2022-05-13 10:08] MED LIST changes: -ASPI-1406 PO; -ATOR40TA70 PO; +CLOP75TA33 PO; +LIP40 PO
[2022-05-13 10:17] VITALS: BP 127/76
== END 2022-05-13 12:16 | disposition home or self-care (01) ==
LOC: ER 10:08
DX: L72.8 Other follicular cysts of the skin and subcutaneous tissue (principal); I69.951 Hemiplegia and hemiparesis following unspecified cerebrovascular disease affecting right dominant side; I69.921 Dysphasia following unspecified cerebrovascular disease
CPT/HCPCS: 99281

== ENCOUNTER 2022-06-18 13:26 | Emergency (ER) | payer MEDICAID ==
[~2022-06-18] VITALS: Ht 177.8 cm; Wt 73.0 kg
[2022-06-18 13:57] VITALS: BP 113/76
[2022-06-18] MEDS ORDERED: ONDANSETRON 4MG ODT PO ONE (15:00)
== END 2022-06-18 16:09 | disposition home or self-care (01) ==
LOC: ER 13:32
DX: L72.11 Pilar cyst (principal); R51.9 Headache, unspecified; E78.00 Pure hypercholesterolemia, unspecified; Z86.73 Personal history of transient ischemic attack (TIA), and cerebral infarction without residual deficits; Z98.890 Other specified postprocedural states
CPT/HCPCS: 70450; 99284; Q0162

== ENCOUNTER 2022-08-16 08:56 | Emergency (ER) | payer MEDICAID ==
[~2022-08-16] VITALS: Ht 170.2 cm; Wt 68.0 kg
[2022-08-16 09:15] VITALS: BP 129/74
[2022-08-16 10:02] LABS: BASOPHILS % 0.5 % (0.0-2.0); EOSINOPHILS % 2.2 % (0.0-5.0); HEMATOCRIT. 45.9 % (42.0-52.0); HEMOGLOBIN. 15.2 g/dL (14.0-18.0); LYMPHOCYTES % 25.3 % (20.0-50.0); MEAN CORPUSCULAR HEMOGLOBIN 29.9 pg (28.0-32.0); MEAN CORPUSCULAR VOLUME 90.3 fL (80.0-94.0); MEAN PLATELET VOLUME 8.4 fl (7.4-10.4); MONOCYTES % 6.9 % (2.0-8.0); NEUTROPHILS % 65.1 % (40.0-76.0); PLATELET 236 x1000/uL (130-400); RED BLOOD CELL COUNT 5.08 mill/uL (4.7-6.1); RED CELL DISTRIBUTION WIDTH 13.7 % (11.6-14.6)
[2022-08-16] MEDS ORDERED: MECLIZINE 25MG TABLET PO ONE (10:15)
[2022-08-16] MEDS ORDERED: MECLIZINE 12.5MG TABLET PO NR (10:15)
[2022-08-16 10:18] LABS: CHLORIDE 107 mEq/L (98-107)
== END 2022-08-16 14:00 | disposition home or self-care (01) ==
LOC: ER 08:56
DX: R42 Dizziness and giddiness (principal); M79.18 Myalgia, other site; Z86.73 Personal history of transient ischemic attack (TIA), and cerebral infarction without residual deficits
CPT/HCPCS: 36415; 70450; 71045; 80053; 84484; 85025; 93005; 99285; J8597

== ENCOUNTER 2022-10-14 08:31 | Emergency (ER) | payer MEDICAID ==
[~2022-10-14] VITALS: Ht 170.2 cm; Wt 68.0 kg
[2022-10-14 09:00] VITALS: BP 121/70
[2022-10-14] MEDS ORDERED: KETOROLAC 30MG/ML VIAL IM ONE (09:00)
[2022-10-14 09:50] LABS: CLARITY URINE CLEAR (CLEAR); COLOR URINE YELLOW (YELLOW); KETONES URINE NEGATIVE (NEGATIVE); LEUKOCYTE ESTERASE URINE NEGATIVE (NEGATIVE); NITRITE URINE NEGATIVE (NEGATIVE); OCCULT BLOOD URINE NEGATIVE (NEGATIVE); PH URINE 6.5 (4.5-8.0); PROTEIN URINE NEGATIVE (NEGATIVE); SPECIFIC GRAVITY URINE 1.026 (1.005-1.030)
[2022-10-14 10:10] LABS: BASOPHILS % 0.6 % (0.0-2.0); EOSINOPHILS % 1.9 % (0.0-5.0); HEMATOCRIT. 43.4 % (42.0-52.0); HEMOGLOBIN. 14.7 g/dL (14.0-18.0); LYMPHOCYTES % 20.3 % (20.0-50.0); MEAN CORPUSCULAR HEMOGLOBIN 30.6 pg (28.0-32.0); MEAN CORPUSCULAR VOLUME 90.4 fL (80.0-94.0); MEAN PLATELET VOLUME 8.8 fl (7.4-10.4); MONOCYTES % 5.9 % (2.0-8.0); NEUTROPHILS % 71.3 % (40.0-76.0); PLATELET 245 x1000/uL (130-400); RED CELL DISTRIBUTION WIDTH 13.6 % (11.6-14.6)
[2022-10-14 10:17] LABS: CHLORIDE 105 mEq/L (98-107)
== END 2022-10-14 10:50 | disposition home or self-care (01) ==
LOC: ER 08:38
DX: R10.84 Generalized abdominal pain (principal); E78.00 Pure hypercholesterolemia, unspecified; Z86.73 Personal history of transient ischemic attack (TIA), and cerebral infarction without residual deficits
CPT/HCPCS: 36415; 74176; 80053; 81003; 83690; 85025; 96372; 99285; J1885; Z7610

== ENCOUNTER 2023-07-03 09:09 | Emergency (ER) | payer MEDICAID ==
[~2023-07-03] VITALS: Ht 170.2 cm; Wt 80.0 kg
[2023-07-03 09:12] VITALS: BP 124/72; PULSE 74; RESP 18; TEMP 98.9; O2SAT 100
[2023-07-03] MEDS ORDERED: LIDOCAINE HCL 1% 20ML VIAL (Pyxis) INJ INFIL ONE (09:45)
[2023-07-03] MEDS ORDERED: SULF1TAB48 MT (10:12)
[2023-07-03] MEDS ORDERED: CEPH500T MT (10:12)
== END 2023-07-03 13:53 | disposition home or self-care (01) ==
LOC: ER 09:09
DX: L02.811 Cutaneous abscess of head [any part, except face] (principal); E78.00 Pure hypercholesterolemia, unspecified; Z86.73 Personal history of transient ischemic attack (TIA), and cerebral infarction without residual deficits
CPT/HCPCS: 10060; 99283

== ENCOUNTER 2024-01-16 10:38 | Inpatient (IN) | payer MEDICAID ==
[~2024-01-16] VITALS: Ht 172.7 cm; Wt 58.5 kg
[2024-01-16 10:47] VITALS: O2SAT 99
[2024-01-16 11:18] LABS: CHLORIDE 105 mEq/L (98-107); POTASSIUM 3.7 mEq/L (3.5-5.1); SODIUM 136 mEq/L (136-145)
[2024-01-16 11:19] LABS: CALCIUM 9.9 mg/dL (8.7-10.4); CARBON DIOXIDE 26 mEq/L (21-32)
[2024-01-16 11:24] LABS: CREATININE 0.9 mg/dL (0.6-1.3); GLUCOSE 99 mg/dL (70-105); TROPONIN I HIGH SENSITIVITY 4 ng/L (3.0-53); UREA NITROGEN BLOOD 12 mg/dL (9-23)
[2024-01-16 11:29] LABS: BASOPHILS % 0.7 % (0.0-2.0); HEMATOCRIT. 44.7 % (42.0-52.0); HEMOGLOBIN. 14.6 g/dL (14.0-18.0); LYMPHOCYTES % 27.7 % (20.0-50.0); MEAN CORPUSCULAR HEMOGLOBIN 29.8 pg (28.0-32.0); MEAN CORPUSCULAR HGB CONC 32.8 g/dL (31.0-37.0); MEAN PLATELET VOLUME 9.3 fl (7.4-10.4); MONOCYTES % 5.5 % (2.0-8.0); NEUTROPHILS % 64.1 % (40.0-76.0); PLATELET 206 x1000/uL (130-400); RED BLOOD CELL COUNT 4.91 mill/uL (4.7-6.1); RED CELL DISTRIBUTION WIDTH 13.8 % (11.6-14.6)
[2024-01-16] MEDS: IOHEXOL-350 100 ML BOTTLE ONE (11:35)
[2024-01-16 11:37] LABS: ETHANOL BLOOD < 10 mg/dL (<10)
[2024-01-16 11:43] LABS: INR 1.1; PROTHROMBIN TIME 12.3 sec (9.6-11.0)
[2024-01-16 13:23] LABS: TROPONIN I HIGH SENSITIVITY 4 ng/L (3.0-53)
[2024-01-16] MEDS ORDERED: IPRATROPIUM/ALBUTEROL 0.5-3(2.5)MG/3ML NEB HHN PRN (13:45)
[2024-01-16] MEDS ORDERED: GUAIFENESIN 200MG/10ML SUGAR FREE UDC PO PRN (13:45)
[2024-01-16] MEDS ORDERED: DOCUSATE SODIUM 100MG CAPSULE PO PRN (13:45)
[2024-01-16] MEDS ORDERED: ACETAMINOPHEN 325MG TABLET PO PRN ×2 (13:45)
[2024-01-16] MEDS ORDERED: ONDANSETRON HCL 4MG/2ML INJ IV PRN (13:45)
[2024-01-16] MEDS ORDERED: MAGNESIUM/ALUMINUM HYDROXIDE/SIMETHICONE 30ML UDC PO PRN (13:45)
[2024-01-16] MEDS ORDERED: CLONIDINE 0.1MG TABLET PO PRN (13:45)
[2024-01-16 14:14] LABS: LDL CHOLESTEROL 86 mg/dL (5-100); TRIGLYCERIDE 60 mg/dL (0-150)
[2024-01-16 14:15] LABS: ALANINE AMINOTRANSFERASE 58 IU/L (10-49); ASPARTATE AMINOTRANSFERASE 34 IU/L (<34)
[2024-01-16 14:16] LABS: ALBUMIN 4.5 g/dL (3.2-4.8); BILIRUBIN DIRECT 0.4 mg/dL (<=3.0); BILIRUBIN TOTAL 1.6 mg/dL (0.1-1.0); CHOLESTEROL 158 mg/dL (<200); HDL CHOLESTEROL 59 mg/dL (>55); PROTEIN TOTAL 7.5 g/dL (6.0-8.3)
[2024-01-16] MEDS: ASPIRIN 325MG EC TABLET PO NR (14:17)
[2024-01-16 14:18] LABS: T4 FREE 1.11 ng/dL (0.89-1.76); THYROID STIMULATING HORMONE 0.59 uIU/mL (0.55-4.78)
[2024-01-16 14:49] LABS: CLARITY URINE CLEAR (CLEAR); COLOR URINE YELLOW (YELLOW); GLUCOSE URINE NEGATIVE (NEGATIVE); KETONES URINE TRACE (NEGATIVE); LEUKOCYTE ESTERASE URINE NEGATIVE (NEGATIVE); NITRITE URINE NEGATIVE (NEGATIVE); OCCULT BLOOD URINE NEGATIVE (NEGATIVE); PROTEIN URINE NEGATIVE (NEGATIVE); SPECIFIC GRAVITY URINE 1.069 (1.005-1.030)
[2024-01-16 15:04] LABS: *AMPHETAMINES SCREEN URINE NEGATIVE (NEGATIVE); *BENZODIAZEPINES SCREEN URINE NEGATIVE (NEGATIVE)
[2024-01-16 15:05] LABS: *BARBITURATES SCREEN URINE NEGATIVE (NEGATIVE); *COCAINE SCREEN URINE NEGATIVE (NEGATIVE); CANNABINOID URINE SCREEN PRESUMPTIVE POSITIVE (NEGATIVE); ECSTASY MDMA SCREEN URINE NEGATIVE (NEGATIVE); METHADONE URINE SCREEN NEGATIVE (NEGATIVE); OPIATES URINE SCREEN NEGATIVE (NEGATIVE); PHENCYCLIDINE URINE SCREEN NEGATIVE (NEGATIVE)
[2024-01-16] MEDS: ATORVASTATIN CALCIUM 40MG TABLET PO SCH (15:15)
[2024-01-16] MEDS: CLOPIDOGREL 75MG TABLET PO SCH (15:15)
[2024-01-16 15:29] LABS: MUCUS URINE TRACE /lpf (NONE/TRACE); SQUAMOUS EPITHELIAL CELL URINE NONE SEEN /lpf (RARE/1+)
[2024-01-16 15:30] LABS: BACTERIA URINE NONE SEEN; RBC URINE 0-2 /hpf (0-2); WBC URINE 0-2 /hpf (0-2)
[2024-01-16 22:51] VITALS: BP 110/58; PULSE 58; RESP 18; TEMP 36.696
[2024-01-17] VITALS: BP 118/54; PULSE 58; RESP 18; TEMP 36.55848; O2SAT 98
[2024-01-17 04:00] VITALS: BP 108/61; PULSE 58; RESP 18; TEMP 36.78072; O2SAT 98
[2024-01-17 06:29] LABS: CARBON DIOXIDE 27 mEq/L (21-32); CHLORIDE 104 mEq/L (98-107); POTASSIUM 3.7 mEq/L (3.5-5.1); SODIUM 138 mEq/L (136-145)
[2024-01-17 06:30] LABS: CALCIUM 9.9 mg/dL (8.7-10.4)
[2024-01-17 06:35] LABS: CREATININE 0.8 mg/dL (0.6-1.3); GLUCOSE 87 mg/dL (70-105); UREA NITROGEN BLOOD 10 mg/dL (9-23)
[2024-01-17 06:46] LABS: BASOPHILS % 0.4 % (0.0-2.0); EOSINOPHILS % 2.6 % (0.0-5.0); HEMATOCRIT. 45.1 % (42.0-52.0); HEMOGLOBIN. 14.9 g/dL (14.0-18.0); LYMPHOCYTES % 28.5 % (20.0-50.0); MEAN CORPUSCULAR HEMOGLOBIN 29.8 pg (28.0-32.0); MEAN CORPUSCULAR VOLUME 90.5 fL (80.0-94.0); MEAN PLATELET VOLUME 9.4 fl (7.4-10.4); MONOCYTES % 6.5 % (2.0-8.0); PLATELET 215 x1000/uL (130-400); RED BLOOD CELL COUNT 4.98 mill/uL (4.7-6.1); WHITE BLOOD COUNT 5.6 x1000/uL (4.5-11.0)
[2024-01-17 08:00] VITALS: BP 111/65; PULSE 60; RESP 20; TEMP 36.55848; O2SAT 97
[2024-01-17] MEDS: ASPIRIN 81MG TABLET PO SCH (08:59)
[2024-01-17] MEDS: PANTOPRAZOLE SODIUM 40 MG/VIAL IV SCH (08:59)
[2024-01-17 12:00] VITALS: BP 140/71; PULSE 70; RESP 18; TEMP 36.00288; O2SAT 98
[2024-01-17 16:00] VITALS: BP 138/75; PULSE 61; RESP 18; TEMP 37.00296; O2SAT 98
[2024-01-17 20:00] VITALS: BP 105/56; PULSE 50; RESP 21; TEMP 36.61404; O2SAT 98
[2024-01-18] VITALS: BP 105/59; PULSE 51; RESP 20; TEMP 36.50292; O2SAT 98
[2024-01-18 04:00] VITALS: BP 110/71; PULSE 58; RESP 18; TEMP 36.78072; O2SAT 97
[2024-01-18 06:56] LABS: CARBON DIOXIDE 28 mEq/L (21-32); CHLORIDE 105 mEq/L (98-107); POTASSIUM 4.3 mEq/L (3.5-5.1); SODIUM 137 mEq/L (136-145)
[2024-01-18 06:57] LABS: CALCIUM 9.8 mg/dL (8.7-10.4)
[2024-01-18 07:01] LABS: CREATININE 0.9 mg/dL (0.6-1.3)
[2024-01-18 07:02] LABS: GLUCOSE 83 mg/dL (70-105); UREA NITROGEN BLOOD 9 mg/dL (9-23)
[2024-01-18 07:04] LABS: PHOSPHORUS 3.8 mg/dL (2.5-4.9)
[2024-01-18 07:24] LABS: HEMATOCRIT 45.7 % (42.0-52.0); MEAN CORPUSCULAR HEMOGLOBIN 29.9 pg (28.0-32.0); MEAN CORPUSCULAR HGB CONC 32.9 g/dL (31.0-37.0); MEAN CORPUSCULAR VOLUME 90.9 fL (80.0-94.0); PLATELET 208 x1000/uL (130-400); RED BLOOD CELL COUNT 5.03 mill/uL (4.7-6.1); RED CELL DISTRIBUTION WIDTH 13.7 % (11.6-14.6); WHITE BLOOD COUNT 6.1 x1000/uL (4.5-11.0)
[2024-01-18 08:00] VITALS: BP 102/64; PULSE 70; RESP 20; TEMP 36.61404; O2SAT 100
[2024-01-18 12:00] VITALS: BP 105/61; PULSE 53; RESP 17; TEMP 36.6696; O2SAT 99
[2024-01-18 16:00] VITALS: BP 101/65; PULSE 58; RESP 17; TEMP 36.78072; O2SAT 99
[2024-01-19] MEDS ORDERED: FAMOTIDINE 20MG/2ML VIAL IV SCH (09:00)
== END 2024-01-18 20:10 | DRG 45 ==
LOC: ER 10:59 → 5WST 13:52 → EDBEDREQTM 13:55 → EDBEDREQ 13:55 → 8WST 23:08
PROVIDERS: ADMIT Hospitalist; ATTEND Hospitalist
PROC: 4A00X4Z Measurement of Central Nervous Electrical Activity, External Approach (ICD-10-PCS; principal; 2024-01-17)
DX: I63.9 Cerebral infarction, unspecified (principal); G81.91 Hemiplegia, unspecified affecting right dominant side; E11.9 Type 2 diabetes mellitus without complications; E78.00 Pure hypercholesterolemia, unspecified; R47.81 Slurred speech; R00.1 Bradycardia, unspecified; R29.705 NIHSS score 5; G31.9 Degenerative disease of nervous system, unspecified; F12.90 Cannabis use, unspecified, uncomplicated; Z63.4 Disappearance and death of family member; Z79.02 Long term (current) use of antithrombotics/antiplatelets; Z82.3 Family history of stroke
CPT/HCPCS: 36415; 70496; 70498; 70551; 71045; 80048; 80061; 80076; 80305; 80320; 81003; 82962; 83036; 83735; 84100; 84439; 84443; 84484; 85025; 85027; 92523; 93005; 93306; 93970; 95816; 97162; 97166; 99285; J2470; Q9967; G0480

== ENCOUNTER 2024-01-18 20:12 | Inpatient (IN) | payer MEDICAID ==
[~2024-01-18] VITALS: Ht 172.7 cm; Wt 58.5 kg
[2024-01-18] MEDS ORDERED: CLONIDINE 0.1MG TABLET PO PRN (21:15)
[2024-01-18] MEDS ORDERED: GUAIFENESIN 200MG/10ML SUGAR FREE UDC PO PRN (21:15)
[2024-01-18] MEDS ORDERED: MAGNESIUM/ALUMINUM HYDROXIDE/SIMETHICONE 30ML UDC PO PRN (21:15)
[2024-01-18] MEDS ORDERED: IPRATROPIUM/ALBUTEROL 0.5-3(2.5)MG/3ML NEB HHN PRN (21:15)
[2024-01-18] MEDS ORDERED: ONDANSETRON HCL 4MG/2ML INJ IV PRN (21:15)
[2024-01-18] MEDS ORDERED: ACETAMINOPHEN 325MG TABLET PO PRN ×2 (21:15)
[2024-01-18] MEDS ORDERED: DOCUSATE SODIUM 100MG CAPSULE PO PRN (21:15)
[2024-01-18 22:00] VITALS: BP 117/80; PULSE 59; RESP 18; TEMP 37.4188
[2024-01-18] MEDS: ATORVASTATIN CALCIUM 40MG TABLET PO SCH (22:05)
[2024-01-19 07:14] LABS: CHLORIDE 103 mEq/L (98-107); POTASSIUM 4.2 mEq/L (3.5-5.1); SODIUM 137 mEq/L (136-145)
[2024-01-19 07:15] LABS: CALCIUM 9.5 mg/dL (8.7-10.4); CARBON DIOXIDE 31 mEq/L (21-32)
[2024-01-19 07:20] LABS: GLUCOSE 81 mg/dL (70-105)
[2024-01-19 07:21] LABS: UREA NITROGEN BLOOD 10 mg/dL (9-23)
[2024-01-19 07:22] LABS: ALANINE AMINOTRANSFERASE 40 IU/L (10-49); ALBUMIN 4.4 g/dL (3.2-4.8); ASPARTATE AMINOTRANSFERASE 23 IU/L (<34); BASOPHILS % 0.3 % (0.0-2.0); EOSINOPHILS % 1.9 % (0.0-5.0); HEMATOCRIT. 46.8 % (42.0-52.0); HEMOGLOBIN. 15.3 g/dL (14.0-18.0); LYMPHOCYTES % 20.6 % (20.0-50.0); MEAN CORPUSCULAR HEMOGLOBIN 29.7 pg (28.0-32.0); MEAN CORPUSCULAR HGB CONC 32.8 g/dL (31.0-37.0); MEAN CORPUSCULAR VOLUME 90.6 fL (80.0-94.0); MEAN PLATELET VOLUME 9.3 fl (7.4-10.4); MONOCYTES % 6.8 % (2.0-8.0); NEUTROPHILS % 70.4 % (40.0-76.0); PLATELET 208 x1000/uL (130-400); RED BLOOD CELL COUNT 5.17 mill/uL (4.7-6.1); RED CELL DISTRIBUTION WIDTH 13.5 % (11.6-14.6); WHITE BLOOD COUNT 7.2 x1000/uL (4.5-11.0)
[2024-01-19 07:23] LABS: BILIRUBIN TOTAL 1.5 mg/dL (0.1-1.0); PROTEIN TOTAL 7.2 g/dL (6.0-8.3)
[2024-01-19 08:00] VITALS: BP 100/61; PULSE 56; RESP 20; TEMP 36.6696; O2SAT 98
[2024-01-19] MEDS: ASPIRIN 81MG TABLET PO SCH (10:38)
[2024-01-19] MEDS: FAMOTIDINE 20MG/2ML VIAL IV SCH (10:38)
[2024-01-19] MEDS: CLOPIDOGREL 75MG TABLET PO SCH (10:38)
[2024-01-19] MEDS ORDERED: BISACODYL 5MG TABLET PO PRN (13:45)
[2024-01-19 20:00] VITALS: BP 115/72; PULSE 58; RESP 18; TEMP 36.72516; O2SAT 98
[2024-01-20 08:00] VITALS: BP 96/50; PULSE 70; RESP 20; TEMP 36.61404; O2SAT 95
[2024-01-20 20:00] VITALS: BP 112/68; PULSE 52; RESP 18; TEMP 36.61404; O2SAT 98
[2024-01-20] MEDS: FAMOTIDINE 20MG TABLET PO SCH (20:33)
[2024-01-21 08:00] VITALS: BP 96/55; PULSE 82; RESP 20; TEMP 36.50292; O2SAT 97
[2024-01-21 11:04] LABS: BASOPHILS % 0.7 % (0.0-2.0); EOSINOPHILS % 2.1 % (0.0-5.0); HEMATOCRIT. 47.7 % (42.0-52.0); LYMPHOCYTES % 20.4 % (20.0-50.0); MEAN CORPUSCULAR HEMOGLOBIN 30.1 pg (28.0-32.0); MEAN CORPUSCULAR HGB CONC 33.4 g/dL (31.0-37.0); MEAN CORPUSCULAR VOLUME 90.2 fL (80.0-94.0); MEAN PLATELET VOLUME 9.2 fl (7.4-10.4); MONOCYTES % 5.4 % (2.0-8.0); NEUTROPHILS % 71.4 % (40.0-76.0); PLATELET 204 x1000/uL (130-400); RED BLOOD CELL COUNT 5.29 mill/uL (4.7-6.1); RED CELL DISTRIBUTION WIDTH 13.7 % (11.6-14.6); WHITE BLOOD COUNT 5.3 x1000/uL (4.5-11.0)
[2024-01-21 11:16] LABS: INR 1.1; PARTIAL THROMBOPLASTIN TIME 28.6 sec (23.4-31.0); PROTHROMBIN TIME 12.1 sec (9.6-11.0)
[2024-01-21 20:00] VITALS: BP 130/65; PULSE 82; RESP 18; TEMP 36.61404; O2SAT 97
[2024-01-22 08:00] VITALS: BP 126/76; PULSE 62; RESP 18; TEMP 36.61404; O2SAT 95
[2024-01-22 20:00] VITALS: BP 100/59; PULSE 55; RESP 18; TEMP 36.55848; O2SAT 98
[2024-01-23 08:00] VITALS: BP 120/73; PULSE 60; RESP 20; TEMP 35.61396; O2SAT 100
[2024-01-23 17:06] LABS: PROTEIN C FUNCTIONAL 67 % (73-180)
[2024-01-23 20:00] VITALS: BP 107/58; PULSE 66; RESP 19; TEMP 38.00304; O2SAT 98
[2024-01-23 20:30] VITALS: TEMP 36.72516
[2024-01-24 08:00] VITALS: BP 94/56; PULSE 72; RESP 18; TEMP 36.61404; O2SAT 98
[2024-01-24 20:00] VITALS: BP 106/60; PULSE 61; RESP 18; TEMP 36.50292; O2SAT 96
[2024-01-25 08:00] VITALS: BP 103/57; PULSE 69; RESP 18; TEMP 36.55848; O2SAT 78
[2024-01-25] MEDS ORDERED: CLOP75TA33 PO (15:05)
[2024-01-25] MEDS ORDERED: FAMO20TA8 PO (15:05)
[2024-01-25] MEDS ORDERED: LIP40 PO (15:05)
[2024-01-25] MEDS ORDERED: ASPI-1160 PO (15:05)
[2024-01-25 20:00] VITALS: BP_SYST 110; BP_SYST 127; BP_DIAS 56; BP_DIAS 63; PULSE 63; RESP 17; RESP 18; TEMP 36.33624; TEMP 36.78072; O2SAT 96; O2SAT 97
[2024-01-26 08:00] VITALS: BP 105/57; PULSE 71; RESP 20; TEMP 36.6696; O2SAT 99
[2024-01-26 08:25] VITALS: BP 105/57; PULSE 71; TEMP 98; O2SAT 99
[2024-01-26 08:26] VITALS: BP 105/57; PULSE 71; RESP 20; TEMP 36.6696; TEMP 36.66960; O2SAT 99
[2024-01-26 15:06] LABS: ANTI-CARDIOLIPIN AB IGG < 9 GPL U/mL (0-14); ANTI-CARDIOLIPIN AB IGM < 9 MPL U/mL (0-12)
== END 2024-01-26 12:15 | disposition home health service (06) | DRG 45 ==
PROVIDERS: ADMIT Psychiatry & Neurology Neurology; ATTEND Hospitalist
DX: I63.9 Cerebral infarction, unspecified (principal); I69.351 Hemiplegia and hemiparesis following cerebral infarction affecting right dominant side; R26.2 Difficulty in walking, not elsewhere classified; I10 Essential (primary) hypertension; E78.00 Pure hypercholesterolemia, unspecified; R42 Dizziness and giddiness; R47.1 Dysarthria and anarthria; R47.81 Slurred speech; F12.90 Cannabis use, unspecified, uncomplicated; L89.90 Pressure ulcer of unspecified site, unspecified stage; Z91.81 History of falling
CPT/HCPCS: 36415; 80053; 80061; 85025; 85303; 85306; 86147; 92523; 92610; 97110; 97116; 97150; 97162; 97166; 97530; 97535; J3490

== ENCOUNTER 2025-01-22 08:52 | Emergency (ER) | payer MEDICAID ==
[~2025-01-22] VITALS: Ht 170.2 cm; Wt 68.0 kg
[~2025-01-22 08:52] MED LIST changes: +ASPI-1160 PO; +FAMO20TA8 PO
[2025-01-22 08:56] VITALS: O2SAT 97
[2025-01-22] MEDS: DIPHENHYDRAMINE 25MG CAPSULE PO ONE (09:40)
[2025-01-22] MEDS: METOCLOPRAMIDE HCL 10MG TABLET PO ONE (09:40)
[2025-01-22] MEDS: KETOROLAC 15MG/ML VIAL IM ONE (09:40)
[2025-01-22 10:55] VITALS: BP 127/71; PULSE 68; RESP 18; TEMP 36.7; O2SAT 97
== END 2025-01-22 11:02 | disposition home or self-care (01) ==
LOC: ER 08:52
DX: G44.209 Tension-type headache, unspecified, not intractable (principal); F12.10 Cannabis abuse, uncomplicated; E78.00 Pure hypercholesterolemia, unspecified; Z79.899 Other long term (current) drug therapy; Z98.890 Other specified postprocedural states; Z79.82 Long term (current) use of aspirin; Z86.73 Personal history of transient ischemic attack (TIA), and cerebral infarction without residual deficits
CPT/HCPCS: 70450; 96372; 99285; Q0163; J8597; J1885; Z7610